=== PATIENT | male | born 1980 | race Two or more races ===

== ENCOUNTER 2017-01-09 16:12 | Emergency (ER) | payer SELFPAY ==
[~2017-01-09] VITALS: Ht 172.7 cm; Wt 126.1 kg
[2017-01-09] MEDS ORDERED: LORAZEPAM 2 MG/ML VIAL. IV ONE (16:45)
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
[2017-01-09 17:03] LABS: BILIRUBIN,URINE NEGATIVE (NEG); GLUCOSE,URINE NEGATIVE (NEG); NITRITE,URINE NEGATIVE (NEG); PROTEIN,URINE NEGATIVE (NEG-TRACE)
[2017-01-09 17:11] LABS: BACTERIA,URINE 0 /HPF (0-FEW); BARBITURATES NEG (NEG); BENZODIAZEPINES NEG (NEG); CANNABINOIDS NEG (NEG); COCAINE NEG (NEG); METHADONE NEG (NEG); OPIATES NEG (NEG); PHENCYCLIDINE NEG (NEG); RBC,URINE 0 /HPF (0-2); WBC,URINE OCC /HPF (0-4)
[2017-01-09 17:15] LABS: BASO % 0 % (0-3); EOS % 1 % (0-3); HEMOGLOBIN 15.7 g/dL (13.0-17.5); LYMPH # 2.3 x10^3/uL (1.0-4.8); LYMPH % 20 % (24-48); MEAN CORPUSCULAR HEMOGLOBIN 31 pg (25-35); MEAN CORPUSCULAR HGB CONC 36 g/dL (31-37); MEAN CORPUSCULAR VOLUME 86 fL (79-100); MONO % 6 % (0-9); NEUT % 73 % (31-73); PLATELET COUNT 280 x10^3/uL (140-400); RED BLOOD COUNT 5.14 x10^6/uL (4.30-5.70); RED CELL DISTRIBUTION WIDTH 13.3 % (11.5-14.5); WHITE BLOOD COUNT 11.5 x10^3/uL (4.0-11.0)
[2017-01-09] MEDS ORDERED: IV NORMAL SALINE 1000ML BAG 1,000 ML IV ONE (17:15)
[2017-01-09 17:17] LABS: ETHANOL, URINE NEG (NEG)
[2017-01-09 17:30] VITALS: BP 173/104
[2017-01-09 17:37] LABS: CALCIUM 8.8 mg/dL (8.5-10.1); CREATININE 0.9 mg/dL (0.7-1.3); GFR 94.4; POTASSIUM 3.2 mmol/L (3.5-5.1)
[2017-01-09 17:49] LABS: ALBUMIN 4.2 g/dL (3.4-5.0); MAGNESIUM 1.7 mg/dL (1.8-2.4); TOTAL BILIRUBIN 0.5 mg/dL (0.2-1.0); TOTAL PROTEIN 8.4 g/dL (6.4-8.2)
--- NOTE | 2017-01-10 06:08 | EKG ---
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
== END 2017-01-09 19:05 | disposition home or self-care (01) ==
LOC: ER 17:40
DX: F15.10 Other stimulant abuse, uncomplicated (principal); F41.9 Anxiety disorder, unspecified; R45.1 Restlessness and agitation; R74.8 Abnormal levels of other serum enzymes; R00.0 Tachycardia, unspecified; I10 Essential (primary) hypertension
CPT/HCPCS: 36415; 80053; 80305; 80320; 81001; 83735; 85027; 93005; 96361; 96374; 99285; J2060; J7030; G0481